=== PATIENT | female | born 1995 | race Caucasian/White ===

== ENCOUNTER 2020-12-02 04:15 | Emergency (ER) | payer OTHER ==
[~2020-12-02] VITALS: Ht 162.6 cm; Wt 65.8 kg
[2020-12-02] MEDS ORDERED: VISTARIL25 MG PO (08:39)
[2020-12-02] MEDS ORDERED: CIPRO500 MG PO (08:39)
== END 2020-12-02 08:50 | disposition home or self-care (01) ==
LOC: ER 04:15
DX: R25.1 Tremor, unspecified (principal); R11.0 Nausea; R10.13 Epigastric pain; F41.0 Panic disorder [episodic paroxysmal anxiety]